=== PATIENT | male | born 1980 | race Two or more races ===

== ENCOUNTER 2025-02-01 21:17 | Emergency (ER) | payer MEDICAID, OTHER ==
[~2025-02-01] VITALS: Ht 188 cm; Wt 178.0 kg
--- NOTE | 2025-02-01 22:15 | ED.PDOC ---
Musculoskeletal HPI Comments 44-year-old male presents to ER with complaints of left 4th finger pain x1 day. Patient reports he started experiencing pain/swelling/bruising to palmar surface of left 4th finger at 2:00 p.m. prior to arrival to ER s/p his garage door accidentally shutting on his left 4th finger. He rates his current pain a 9/10 to left 4th finger without radiation. Denies numbness/tingling or any further symptoms/complaints Chief Complaint: Upper Extremity Time Seen by MD: 21:51 Primary Care Provider: UNKNOWN Reviewed Notes: Nurses Notes, Medications, Allergies Allergies: Coded Allergies: NO KNOWN ALLERGIES (Unverified , 02/01/25) Information Source: Patient Mode of Arrival: Ambulatory Past Medical History PAST MEDICAL HISTORY: Denies Surgical History: Denies all surgeries Family History Family History: Unknown Social History Smoker: Non-Smoker Alcohol: Denies ETOH Use Drugs: Denies Drug Use Lives In: Home Constitutional: denies: chills, diaphoresis, fatigue, fever, malaise, sweats, weakness, others EENTM: denies: blurred vision, double vision, ear bleeding, ear discharge, ear drainage, ear pain, ear ringing, eye pain, eye redness, hearing loss, mouth pain, mouth swelling, nasal discharge, nose bleeding, nose congestion, nose pain, photophobia, tearing, throat pain, throat swelling, voice changes, others Respiratory: denies: cough, hemoptysis, orthopnea, SOB at rest, shortness of breath, SOB with excertion, stridor, wheezing, others Cardiovascular: denies: chest pain, dizzy spells, diaphoresis, Dyspnea on exertion, edema, irregular heart beat, left arm pain, lightheadedness, palpitations, PND, syncope, others Gastrointestinal: denies: abdomen distended, abdominal pain, blood streaked bowels, constipated, diarrhea, dysphagia, difficulty swallowing, hematemesis, me burton, nausea, poor appetite, poor fluid intake, rectal bleeding, rectal pain, vomiting, others Genitourinary: denies: burning, dysuria, flank pain, frequency, hematuria, incontinence, penile discharge, penile sore, pain, testicle pain, testicle swelling, urgency, others Neurological: denies: dizziness, fainting, headache, left sided numbness, left sided weakness, numbness, paresthesia, pre-existing deficit, right sided numbness, right sided weakness, seizure, speech problems, tingling, tremors, weakness, others Musculoskeletal: reports: others (As stated in HPI) Integumetry: reports: others (As stated in HPI) Allergic/Immunocompromised: denies: Difficulty Healing, Frequent Infections, Hives, Itching, others Hematologic/Lymphatic: denies: anemia, blood clots, easy bleeding, easy bruising, swollen glands, others Endocrine: denies: excessive hunger, excessive sweating, excessive thirst, excessive urination, flushing, intolerance to cold, intolerance to heat, unexplained weight gain, unexplained weight loss, others Psychiatric: denies: anxiety, bipolar disorder, depression, hopeless, panic disorder, schizophrenia, sleepless, suicidal, others Physical Exam General Appearance: No Apparent Distress HEENT: PERRL/EOMI Neck: Full Range of Motion, Non-Tender, Normal Respiratory: Chest Non-Tender, Lungs Clear, No Accessory Muscle Use, No Respiratory Distress, Normal Breath Sounds Cardiovascular: No Murmur, No Gallop, Regular Rate/Rhythm Breast Exam: Deferred Gastrointestinal: NOT DONE Genitalia: Deferred Pelvic: Deferred Rectal: Deferred Extremities: Normal capillary refill, Normal range of motion Musculoskeletal : Extremity Location: Finger 4 (TTP/mild swelling/ecchymosis noted to distal tuft/palmar surface of left 4th finger. No nailbed injury/deformity/further skin changes noted. Patient able to fully move all fingers of left hand. Pulses intact) Neurologic: Alert, quantitative equity head II-XII nml as Tested, No Motor Deficits, Normal Affect, Normal Mood, No Sensory Deficits Cerebellar Function: Normal Reflexes: Normal Skin: Dry, Warm Peripheral Pulses: 2+ Radial (R), 2+ Radial (L), 2+ Brachial (R), 2+ Brachial (L) Lymphatic: No Adenopathy Was a procedure done? Was a procedure done?: No Sedation Sedation?: No Differential Diagnosis EXT Differential Diagnosis: Dislocation, Laceration, Strain, Neurovascular injury X-Ray, Labs, Meds, VS Vital Signs Date Time Temp Pulse Resp B/P (MAP) Pulse Ox O2 Delivery O2 Flow Rate FiO2 02/01/25 21:17 97.5 82 20 171/107 (128) 97 97.5 PATIENT: LOYDPATTIE: [id number]: [id number] : 1980 LOC: ER ROOM / BED: / AGE / SEX: 44 / M ADM STATUS: REG ER SERVICE 54 ORDERING PHYSICIAN: GLORY WILLSON PROCEDURE(s): LFIN4 - L 4TH FINGER XRAY REASON: left 4th finger pain ORDER NUMBER(s): [id number], ACCESSION NUMBER(s): [id number] CLINICAL INDICATION: left 4th finger pain TECHNIQUE: XY L 4TH FINGER XRAY Comparison: None FINDINGS/IMPRESSION: : Comminuted fracture of the distal tuft of the 4th distal phalanx. Soft tissue swelling about the distal 4th digit. No radiopaque foreign body. ATED BY: ADRIANA BECKMAN MD DICTATED DATE/TIME: 02/01/252244 SIGNED BY: ADRIANA BECKMAN MD SIGNED DATE/TIME: 02/01/252244 CC: Left 4th finger x-ray reviewed Finger splint applied Patient neurovascularly intact Advised on elevation and alternate ice on/off as needed for pain/swelling Advised to follow up with PCP and orthopedic hand specialist in 1-2 days Patient verbalized understanding and agreeable with current plan of care Advised to return to ER immediately if symptoms worsen Images Reviewed?: Images reviewed and evaluated by me Time of 1ST Reevaluation: 22:00 Reevaluation 1ST: N/A Patient Education/Counseling: Diagnosis, Treatment, Prognosis, Need For Follow Up Family Education/Counseling: No Family Present Departure 1 Departure Time of Disposition: 22:02 Impression: Primary Impression: Fracture of finger of left hand Qualified Codes: S62.665A - Nondisplaced fracture of distal phalanx of left ring finger, initial encounter for closed fracture Disposition: 01 HOME / SELF CARE / HOMELESS Condition: Stable Discharged With: Friend Critical Care Note Critical Care Time?: No Stability Stability form required: No Heart Score Heart Score: Heart Score Response (Comments) Value History N/A 0 EKG N/A 0 Age N/A 0 Risk Factors N/A 0 Troponin N/A 0 Total 0 GLORY WILLSON Feb 01, 2025 22:15
--- NOTE | 2025-02-01 22:48 | DVH ---
CLINICAL INDICATION: left 4th finger pain TECHNIQUE: XY L 4TH FINGER XRAY Comparison: None FINDINGS/IMPRESSION: : Comminuted fracture of the distal tuft of the 4th distal phalanx. Soft tissue swelling about the distal 4th digit. No radiopaque foreign body.
[2025-02-01 23:35] VITALS: BP 128/80; PULSE 78; RESP 18; TEMP 97.8; O2SAT 97
== END 2025-02-01 23:37 | disposition home or self-care (01) ==
LOC: ER 21:17
DX: S62.635A Displaced fracture of distal phalanx of left ring finger, initial encounter for closed fracture (principal); W23.0XXA Caught, crushed, jammed, or pinched between moving objects, initial encounter; Y93.89 Activity, other specified; Y92.89 Other specified places as the place of occurrence of the external cause; Y99.8 Other external cause status
CPT/HCPCS: 29130; 73140